=== PATIENT | male | born 1940 | race Caucasian/White ===

== ENCOUNTER 2020-06-02 20:53 | Observation (INO) | payer MEDICARE, OTHER ==
[~2020-06-02] VITALS: Ht 188 cm; Wt 107.1 kg
[~2020-06-02 20:53] MED LIST: ATOR40TA78 PO; CYCL-259 PO; HYDR-3240 PO; LEVO75TA5 PO; LISI-167 PO; SITA100T PO; SULF1TAB24 PO
[2020-06-02] MEDS ORDERED: SODIUM CHLORIDE FLUSH 10ML SYR IVF ONE (21:30)
[2020-06-02 21:43] LABS: MICROSCOPIC AUTO
--- NOTE | 2020-06-02 21:49 | NUR ---
pt to room s/p fall x 3 at home pt is post op wednesday05/31/2020 back surgery pt c/o unable to void, méndez cat placed and piv started, vss at this time, pt in nad
[2020-06-02 21:56] LABS: MEAN CORPUSCULAR HEMOGLOBIN 31.8 pg (27.5-34.5); MEAN CORPUSCULAR HGB CONC 32.8 g/dL (33.2-36.2); MEAN PLATELET VOLUME 7.6 fL (7.4-10.4); PLATELET COUNT 240 x10^3/uL (130-400); RED BLOOD COUNT 4.54 x10^6/uL (4.38-5.82); RED CELL DISTRIBUTION WIDTH 14.3 % (9.4-14.8)
[2020-06-02 22:02] LABS: ALANINE AMINOTRANSFERASE 33 U/L (12-78); ALBUMIN 3.8 g/dL (3.4-5.0); ANION GAP 8 mmol/L (5-15); CALCIUM 10.4 mg/dL (8.5-10.1); CHLORIDE 104 mmol/L (98-107); CREATININE 1.65 mg/dL (0.7-1.3)
--- NOTE | 2020-06-02 22:02 | NUR ---
pt resting in nad vss
[2020-06-02 22:04] LABS: ALKALINE PHOSPHATASE 63 U/L (45-117); BILIRUBIN,TOTAL 1.2 mg/dL (0.2-1.0); TOTAL PROTEIN 6.9 g/dL (6.4-8.2)
[2020-06-02 22:21] LABS: BASOPHILS # (AUTO) 0.01 x10^3/uL (0-0.1); BASOPHILS % (AUTO) 0 % (0-1); EOSINOPHILS # (AUTO) 0.02 x10^3/uL (0-0.4); EOSINOPHILS % (AUTO) 0 % (1-7); LYMPHOCYTES # (AUTO) 1.06 x10^3/uL (1-3.4); LYMPHOCYTES % (AUTO) 8 % (22-44); MD SCAN; MONOCYTES # (AUTO) 1.29 x10^3/uL (0.2-0.8); MONOCYTES % (AUTO) 9 % (2-9); NEUTROPHILS # (AUTO) 11.82 x10^3/uL (1.8-6.8); NEUTROPHILS % (AUTO) 83 % (42-75)
--- NOTE | 2020-06-02 22:23 | NUR ---
awaiting admit at this time
--- NOTE | 2020-06-02 22:39 | NUR ---
report to adam arriaza to floor with tech
[2020-06-02 23:11] VITALS: BP 91/58
[2020-06-02] MEDS ORDERED: ACETAMINOPHEN 325 MG TABLET PO PRN (23:30)
[2020-06-02] MEDS ORDERED: ONDANSETRON 2MG/ML, 2ML IVPush PRN (23:30)
[2020-06-02] MEDS ORDERED: LACTATED RINGERS 1,000 ML IV SCH (23:30)
[2020-06-02] MEDS ORDERED: HYDROcodone/APAP 5/325 TABLET PO PRN (23:30)
[2020-06-02] MEDS ORDERED: LABETALOL 5MG/ML, 20ML IVPush PRN (23:30)
[2020-06-03] MEDS ORDERED: CEPHALEXIN 250 MG CAPSULE PO SCH
[2020-06-03] MEDS ORDERED: PHARMACY MAY ADJ FOR RENAL FX MC PRN
[2020-06-03 02:09] LABS: FREE T4 (FREE THYROXINE) 1.37 ng/dL (0.76-1.46)
[2020-06-03 02:30] VITALS: BP_SYST 121; BP_SYST 125; BP_SYST 126; BP_DIAS 68; BP_DIAS 69
[2020-06-03] MEDS: LEVOTHYROXINE 75 MCG TABLET PO SCH (06:18)
[2020-06-03 06:35] LABS: BASOPHILS # (AUTO) 0.02 x10^3/uL (0-0.1); BASOPHILS % (AUTO) 0 % (0-1); EOSINOPHILS # (AUTO) 0.03 x10^3/uL (0-0.4); EOSINOPHILS % (AUTO) 0 % (1-7); LYMPHOCYTES # (AUTO) 1.09 x10^3/uL (1-3.4); LYMPHOCYTES % (AUTO) 8 % (22-44); MD NO; MEAN CORPUSCULAR HEMOGLOBIN 31.9 pg (27.5-34.5); MEAN CORPUSCULAR HGB CONC 32.5 g/dL (33.2-36.2); MEAN PLATELET VOLUME 8.1 fL (7.4-10.4); MONOCYTES # (AUTO) 1.34 x10^3/uL (0.2-0.8); MONOCYTES % (AUTO) 10 % (2-9); NEUTROPHILS # (AUTO) 10.52 x10^3/uL (1.8-6.8); NEUTROPHILS % (AUTO) 81 % (42-75); PLATELET COUNT 207 x10^3/uL (130-400); RED BLOOD COUNT 4.36 x10^6/uL (4.38-5.82); RED CELL DISTRIBUTION WIDTH 14.3 % (9.4-14.8)
[2020-06-03 06:44] LABS: ANION GAP 6 mmol/L (5-15); CALCIUM 9.7 mg/dL (8.5-10.1); CHLORIDE 106 mmol/L (98-107); CREATININE 1.17 mg/dL (0.7-1.3)
[2020-06-03] MEDS: CEFDINIR 300 MG CAPSULE PO SCH ×2 (07:07→19:12)
[2020-06-03 07:09] VITALS: BP 155/79
[2020-06-03] MEDS ORDERED: ASA/APAP/ CAFFEINE TABLET ONE (10:58)
[2020-06-03] MEDS: SENNA/DOCUSATE TABLET PO SCH (11:08)
[2020-06-03 13:23] VITALS: BP 126/66
[2020-06-03 18:42] VITALS: BP 142/74
[2020-06-03] MEDS ORDERED: ATORVASTATIN 40 MG TABLET PO SCH (21:00)
[2020-06-04 01:42] VITALS: BP 144/82
[2020-06-04] MEDS: CEFDINIR 300 MG CAPSULE PO SCH ×2 (06:17→18:00)
[2020-06-04] MEDS: LEVOTHYROXINE 75 MCG TABLET PO SCH (06:18)
[2020-06-04 08:11] VITALS: BP 167/97
[2020-06-04] MEDS: SENNA/DOCUSATE TABLET PO SCH (08:23)
[2020-06-04] MEDS ORDERED: POLYETHYLENE GLYCOL 17 GM PACKET PO PRN (14:00)
[2020-06-04 15:14] VITALS: BP 112/61
[2020-06-04] MEDS ORDERED: POLY17PO5 PO (16:19)
[2020-06-04] MEDS ORDERED: CEFD300C37 PO (16:19)
[2020-06-04] MEDS ORDERED: ACET325T26 PO (16:19)
[2020-06-04 18:34] VITALS: BP 95/65
== END 2020-06-04 19:25 ==
LOC: ED 21:15 → EDIP 22:12 → INTOOBSV 22:12 → 4NE 23:07
PROVIDERS: ADMIT Family Medicine; ATTEND Hospitalist
DX: N17.0 Acute kidney failure with tubular necrosis (principal); R53.1 Weakness; D72.829 Elevated white blood cell count, unspecified; E66.9 Obesity, unspecified; E83.52 Hypercalcemia; I10 Essential (primary) hypertension; E78.5 Hyperlipidemia, unspecified; E03.9 Hypothyroidism, unspecified; E11.9 Type 2 diabetes mellitus without complications; N40.0 Benign prostatic hyperplasia without lower urinary tract symptoms; R79.89 Other specified abnormal findings of blood chemistry; S80.211A Abrasion, right knee, initial encounter; M48.061 Spinal stenosis, lumbar region without neurogenic claudication; M71.38 Other bursal cyst, other site; Z90.5 Acquired absence of kidney; Z85.528 Personal history of other malignant neoplasm of kidney; Z98.1 Arthrodesis status; Z79.899 Other long term (current) drug therapy; W18.30XA Fall on same level, unspecified, initial encounter; Y93.89 Activity, other specified; Y92.89 Other specified places as the place of occurrence of the external cause
CPT/HCPCS: 36415; 72148; 80048; 80053; 81001; 82330; 82607; 82962; 83036; 83735; 83880; 84439; 84443; 84481; 85025; 93005; 96360; 96361; 97162; 99284; G0378; J7120